=== PATIENT | male | born 1965 | race Caucasian/White ===

== ENCOUNTER 2017-01-10 08:30 | Day surgery (SDC) | payer BC ==
[2017-01-10] VITALS (273 sets, daily range): BP systolic 100–147; BP diastolic 68–94; PULSE 67–83; TEMP 97.6–98.7; O2SAT 90–100
[~2017-01-10] VITALS: Ht 167.6 cm; Wt 134.5 kg
[2017-01-10 09:39] LABS: HEMATOCRIT 39.5 % (42.0-52.0); MEAN CELL VOLUME 93 fl (80.0-100.0); MEAN CORPUSCULAR HEMOGLOBIN 33 pg (27.0-31.0); MEAN CORPUSCULAR HGB CONC 35 g/dl (33.0-37.0); MEAN PLATELET VOLUME 9.2 fl (7.4-10.4); PLATELET COUNT 194 K/mm3 (130-400); RED BLOOD COUNT 4.25 M/mm3 (4.20-5.60); REDCELL DISTRIBUTION WIDTH-CV 12.6 % (11.5-14.5); WHITE BLOOD COUNT 5.9 K/mm3 (4.8-10.8)
[2017-01-10 09:47] LABS: PROTHROMBIN TIME 11.4 SECONDS (9.7-12.8)
[2017-01-10 09:48] LABS: CALCIUM 8.9 mg/dL (8.4-10.2); CREATININE, serum 0.83 mg/dL (0.66-1.25)
[2017-01-10] MEDS ORDERED: ZOCOR 40MG40 MG PO (09:53)
[2017-01-10] MEDS ORDERED: ASPIRIN 32325 MG/TAB PO (09:53)
[2017-01-10] MEDS ORDERED: IMDUR 30MG30 MG/TAB PO (09:53)
[2017-01-10] MEDS ORDERED: TOPROL XL 25MG25 MG PO (09:54)
[2017-01-10] MEDS ORDERED: LOPID 600M600 MG/TAB PO (09:55)
[2017-01-11] VITALS (22 sets, daily range): BP systolic 107–123; BP diastolic 66–90; PULSE 74–75; TEMP 97.4–97.8; O2SAT 36–100
[2017-01-11 05:49] LABS: HEMATOCRIT 40.3 % (42.0-52.0); HEMOGLOBIN 14.4 g/dl (13.5-18.0); MEAN CELL VOLUME 93 fl (80.0-100.0); MEAN CORPUSCULAR HEMOGLOBIN 33 pg (27.0-31.0); MEAN CORPUSCULAR HGB CONC 36 g/dl (33.0-37.0); MEAN PLATELET VOLUME 8.8 fl (7.4-10.4); PLATELET COUNT 188 K/mm3 (130-400); RED BLOOD COUNT 4.35 M/mm3 (4.20-5.60); REDCELL DISTRIBUTION WIDTH-CV 12.6 % (11.5-14.5); WHITE BLOOD COUNT 7.2 K/mm3 (4.8-10.8)
[2017-01-11 06:18] LABS: CALCIUM 8.9 mg/dL (8.4-10.2); CREATININE, serum 0.77 mg/dL (0.66-1.25); POTASSIUM 3.9 mmol/L (3.4-5.0)
[2017-01-11] MEDS ORDERED: BRILINTA90 MG PO (09:53)
[2017-01-11] MEDS ORDERED: ASPIRIN 81M81 MG/TA2 PO (09:54)
[2017-01-11] MEDS ORDERED: NITROSTAT0.4 MG/TAB SL (09:57)
== END 2017-01-11 10:45 | disposition home or self-care (01) ==
LOC: ICU 08:30 → COL.CAR 08:30 → ICU 12:22 → COL.CAR 01-11 10:45
PROVIDERS: Internal Medicine Cardiovascular Disease
DX: I25.10 Atherosclerotic heart disease of native coronary artery without angina pectoris (principal); T82.855A Stenosis of coronary artery stent, initial encounter; R94.39 Abnormal result of other cardiovascular function study; I34.0 Nonrheumatic mitral (valve) insufficiency; I10 Essential (primary) hypertension; E78.5 Hyperlipidemia, unspecified; E66.9 Obesity, unspecified; G47.33 Obstructive sleep apnea (adult) (pediatric); F17.220 Nicotine dependence, chewing tobacco, uncomplicated; R73.03 Prediabetes; Z68.42 Body mass index [BMI] 45.0-49.9, adult; Z82.49 Family history of ischemic heart disease and other diseases of the circulatory system; Z82.5 Family history of asthma and other chronic lower respiratory diseases; Z83.49 Family history of other endocrine, nutritional and metabolic diseases
CPT/HCPCS: OP; C1725; C1760; C1769; C1876; C1887; C1894; C9600; C9601; J0583; J2250; J3010; Q9967

== ENCOUNTER 2017-03-28 08:53 | Day surgery (SDC) | payer BC ==
[2017-03-28] VITALS (209 sets, daily range): BP systolic 105–143; BP diastolic 58–89; PULSE 62–78; TEMP 98.2–98.7; O2SAT 95–100
[~2017-03-28] VITALS: Ht 167.6 cm; Wt 129.3 kg
[~2017-03-28 08:53] MED LIST: ASPIRIN 32325 MG/TAB PO; ASPIRIN 81M81 MG/TA2 PO; BRILINTA90 MG PO; IMDUR 30MG30 MG/TAB PO; LOPID 600M600 MG/TAB PO; NITROSTAT0.4 MG/TAB SL; TOPROL XL 25MG25 MG PO; ZOCOR 40MG40 MG PO
[2017-03-28 09:25] LABS: HEMATOCRIT 41.5 % (42.0-52.0); HEMOGLOBIN 14.7 g/dl (13.5-18.0); MEAN CELL VOLUME 92 fl (80.0-100.0); MEAN CORPUSCULAR HEMOGLOBIN 33 pg (27.0-31.0); MEAN CORPUSCULAR HGB CONC 35 g/dl (33.0-37.0); MEAN PLATELET VOLUME 9.3 fl (7.4-10.4); PLATELET COUNT 209 K/mm3 (130-400); RED BLOOD COUNT 4.52 M/mm3 (4.20-5.60); REDCELL DISTRIBUTION WIDTH-CV 12.6 % (11.5-14.5); WHITE BLOOD COUNT 7.2 K/mm3 (4.8-10.8)
[2017-03-28 09:37] LABS: INR 1.1 (0.8-3.0); PROTHROMBIN TIME 11.8 SECONDS (9.7-12.8)
[2017-03-28 09:50] LABS: CALCIUM 9.5 mg/dL (8.4-10.2); CREATININE, serum 0.76 mg/dL (0.66-1.25); POTASSIUM 4.2 mmol/L (3.4-5.0)
[2017-03-29 04:14] VITALS: BP 106/71; PULSE 74; TEMP 97.9
[2017-03-29 06:45] LABS: BASO % 0.4 % (0.0-2.0); EOS # 0.1 (0.0-0.7); EOS % 1.9 % (0-4.0); GRAN # 4.9 (1.4-6.5); GRAN % 71.4 % (42.2-75.2); HEMATOCRIT 39.4 % (42.0-52.0); HEMOGLOBIN 13.8 g/dl (13.5-18.0); LYMPH # 1.5 (1.2-3.4); LYMPH % 21.1 % (20.0-51.0); MEAN CELL VOLUME 93 fl (80.0-100.0); MEAN CORPUSCULAR HEMOGLOBIN 33 pg (27.0-31.0); MEAN CORPUSCULAR HGB CONC 35 g/dl (33.0-37.0); MEAN PLATELET VOLUME 9.1 fl (7.4-10.4); MONO # 0.3 (0.1-0.6); MONO % 4.8 % (1.7-9.3); PLATELET COUNT 189 K/mm3 (130-400); RED BLOOD COUNT 4.25 M/mm3 (4.20-5.60); REDCELL DISTRIBUTION WIDTH-CV 12.7 % (11.5-14.5); WHITE BLOOD COUNT 6.9 K/mm3 (4.8-10.8)
[2017-03-29 07:13] LABS: CALCIUM 8.8 mg/dL (8.4-10.2); CREATININE, serum 0.76 mg/dL (0.66-1.25); POTASSIUM 3.9 mmol/L (3.4-5.0)
[2017-03-29 08:00] VITALS: BP 124/64; PULSE 82; TEMP 98.6
[2017-03-29 08:36] VITALS: BP 124/64; PULSE 82; TEMP 98.6
== END 2017-03-29 09:12 | disposition home or self-care (01) ==
LOC: COL.CAR 08:53 → ICU 12:22 → COL.CAR 03-29 09:12
PROVIDERS: Internal Medicine Cardiovascular Disease
DX: I25.110 Atherosclerotic heart disease of native coronary artery with unstable angina pectoris (principal); R73.03 Prediabetes; T82.855A Stenosis of coronary artery stent, initial encounter; I10 Essential (primary) hypertension; E78.2 Mixed hyperlipidemia; I25.2 Old myocardial infarction; G47.33 Obstructive sleep apnea (adult) (pediatric); E66.9 Obesity, unspecified; Z68.42 Body mass index [BMI] 45.0-49.9, adult; Z87.891 Personal history of nicotine dependence
CPT/HCPCS: OP; C1725; C1760; C1769; C1874; C1887; C1894; C9600; C9601; J0583; J2250; J3010; Q9967

== ENCOUNTER 2022-04-21 06:02 | Day surgery (SDC) | payer OTHER ==
[~2022-04-21] VITALS: Ht 167.6 cm; Wt 130.5 kg
[2022-04-21 07:55] VITALS: BP 127/62; PULSE 70
--- NOTE | 2022-04-21 07:55 | NUR ---
Patient returns to [facility] [address] per cart accompanied by Freddy TREVIÑO and transfers from cart to recliner with one person assist. IV fluids infusing. Sipping on orange juice. Spouse in room. Call light in reach. Denies abdominal pain or nausea.
[2022-04-21 08:10] VITALS: BP 116/82; PULSE 66
--- NOTE | 2022-04-21 08:10 | NUR ---
Talking with spouse. IV fluids infusing.
--- NOTE | 2022-04-21 08:10 | NUR ---
Talking with spouse. IV fluids infusing.
[2022-04-21 08:25] VITALS: BP 128/78; PULSE 66
--- NOTE | 2022-04-21 08:25 | NUR ---
Dr. Angel talking with the patient and all questions answered.
--- NOTE | 2022-04-21 08:25 | NUR ---
Dr. Angel talking with the patient and all questions answered.
--- NOTE | 2022-04-21 08:30 | NUR ---
IV discontinued and site is free of redness or swelling. Patient dressing self.
--- NOTE | 2022-04-21 08:30 | NUR ---
IV discontinued and site is free of redness or swelling. Patient dressing self.
--- NOTE | 2022-04-21 08:35 | NUR ---
Dismissal instructions given and patient voices understanding of these.
--- NOTE | 2022-04-21 08:35 | NUR ---
Dismissal instructions given and patient voices understanding of these.
--- NOTE | 2022-04-21 08:38 | NUR ---
Patient discharged to home driven by spouse per private vehicle taken to the front door per wheelchair into car with dismissal instructions in hand.
--- NOTE | 2022-04-21 08:38 | NUR ---
Patient discharged to home driven by spouse per private vehicle taken to the front door per wheelchair into car with dismissal instructions in hand.
[2022-04-21 12:30] VITALS: BP 134/59; PULSE 72; TEMP 96.7
== END 2022-04-21 08:38 | disposition home or self-care (01) ==
LOC: SDCO 06:02
DX: Z12.11 Encounter for screening for malignant neoplasm of colon (principal); K63.5 Polyp of colon; Z83.71 Family history of colonic polyps
CPT/HCPCS: J2704